=== PATIENT | female | born 1985 | race Caucasian/White ===

== ENCOUNTER 2019-05-14 18:24 | Emergency (ER) | payer OTHER ==
[2019-05-14] MEDS ORDERED: ACYCLOVIR 800 MG TABLET PO ONE (20:53)
--- NOTE | 2019-05-14 20:54 | ER Document Report ---
HPI - HPI Time Seen by Provider: 05/14/19 20:32 Pain Level: 4 Context: Patient is a 33-year-old female who presents to the emergency department for a rash. Patient states the rash has been present to the right mid back for 1 week. Patient states it feels like it is burning and is painful. Patient reports itching. Patient states she has used [id number] hydrocortisone cream without relief. Patient reports she feels like she is having a tingling that radiates from the back to the right breast. Patient denies a rash to the breast. Patient denies any past medical surgical history. Patient denies home medications. - REPRODUCTIVE Reproductive: DENIES: : Past Medical History - General Information source: Patient - Social History Smoking Status: Never Smoker Frequency of alcohol use: Social Drug Abuse: None Lives with: Parents Family History: None - Past Medical History Cardiac Medical History: Reports: None Pulmonary Medical History: Reports: None EENT Medical History: Reports: None Neurological Medical History: Reports: None Endocrine Medical History: Reports: None Renal/ Medical History: Reports: None Malignancy Medical History: Reports: None GI Medical History: Reports: None Musculoskeletal Medical History: Reports None Skin Medical History: Reports None Psychiatric Medical History: Reports: None Traumatic Medical History: Reports: None Infectious Medical History: Reports: None Past Surgical History: Reports: None Vertical Provider Document - CONSTITUTIONAL Agree With Documented VS: Yes Exam Limitations: No Limitations General Appearance: No Apparent Distress - INFECTION CONTROL TRAVEL OUTSIDE OF THE [place] IN LAST 30 DAYS: No - HEENT HEENT: Atraumatic, Normal ENT Exam, Normocephalic, PERRLA - NECK Neck: Normal Inspection - RESPIRATORY Respiratory: Breath Sounds Normal, No Respiratory Distress - CARDIOVASCULAR Cardiovascular: Regular Rate, Regular Rhythm - GI/ABDOMEN Gastrointestinal: Abdomen Soft, Abdomen Non-Tender - BACK Back: Normal Inspection - NEURO Level of Consciousness: Awake, Alert, Appropriate - DERM Integumentary: Warm, Rash Adult Front & Back Diagram: 1 - Unilateral vesicular rash noted to the T5-T7 dermatome, erythematous without surrounding cellulitis. The rash is contained to the area highlighted in the photo. Course - Vital Signs Vital signs: Temp Pulse Resp BP Pulse Ox 98.2 F 73 18 111/57 L 100 05/14/19 18:39 05/14/19 18:39 05/14/19 18:39 05/14/19 18:39 05/14/19 18:39 Discharge - Discharge Clinical Impression: Shingles Qualifiers: Herpes zoster complications: without complications Qualified Code(s): B02.9 - Zoster without complications Condition: Stable Disposition: HOME, SELF-CARE Additional Instructions: Today you were seen in the emergency department for rash. The rash appears to be shingles. This is caused by a virus. This is contagious until the area starts to crust over. The rash usually worsens for about a week. He will be prescribed an antiviral such as acyclovir. Benadryl can help with the itching if it does not respond to soda baths and calamine lotion. If the area remains severely painful as the sores heal or if you suspect infection developing sores please return to the emergency department or follow-up with your primary care physician. Shingles You have shingles. Shingles is caused by the chicken pox virus, The virus has been surviving dormant in a nerve cell since you had chicken pox years ago. The virus has spread down a nerve root to reach the skin. Typically, an band-like area of pain and skin sensitivity develops, then small blisters erupt in the area. Shingles lasts two or three weeks, but sometimes leaves persistent pain. You are contagious -- you can give children chicken pox. But you can't give anyone shingles. Antiviral medicines (such as acyclovir or famciclovir) can help, but the rash usually worsens for about a week. Pain medication is often given if the area hurts. Antihistamines such as Benadryl may be necessary for itching if it does not respond to soda baths and calamine lotion. Sometimes cortisone medicine or nerve-block shots are necessary if pain is severe. If the area remains severely painful as the sores heal, or if you suspect an infection developing in the sores, see your doctor. Prescriptions: Acyclovir [Zovirax] 800 mg PO 5XD 7 Days #35 tablet
[2019-05-14 21:06] VITALS: BP 105/90
[2019-05-14] MEDS ORDERED: ACYCLOVIR 800 MG TABLET ONE (21:17)
== END 2019-05-14 21:29 | disposition home or self-care (01) ==
LOC: ER 18:24
DX: B02.9 Zoster without complications (principal)
CPT/HCPCS: 99282; J3490